=== PATIENT | female | born 1995 | race Caucasian/White ===

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

== ENCOUNTER 2018-10-21 18:26 | Emergency (ER) | payer OTHER ==
[~2018-10-21] VITALS: Ht 172.7 cm; Wt 68.0 kg
[2018-10-21 18:41] VITALS: BP 128/65
[2018-10-21 20:06] LABS: APPEARANCE,URINE Slightly Cloudy (CLEAR); BILIRUBIN,URINE Negative (NEGATIVE); BLOOD, URINE Negative Ery/uL (NEGATIVE); COLOR,URINE Yellow (YELLOW); KETONES,URINE Negative (NEGATIVE); LEUKOCYTE ESTERASE ,URINE Small (NEGATIVE); NITRITE, URINE Negative (NEGATIVE); PROTEIN,URINE Negative (NEGATIVE); UGLUCOSE Negative (NEGATIVE); UROBILINOGEN,URINE 0.2 EU/dL (0.2)
[2018-10-21 20:17] LABS: RBC,URINE 0-2 /HPF (0-2); WBC,URINE 0-2 /HPF (0-3)
[2018-10-21 20:18] LABS: BACTERIA,URINE FEW /HPF (None Seen); SQUAMOUS EPITHELIAL CELL,UR MODERATE /HPF (None Seen)
[2018-10-21] MEDS ORDERED: KETOROLAC TROMETHAMINE INJ 30 MG/ML VIAL ONE (20:25)
[2018-10-21] MEDS ORDERED: METHOCARBAMOL (500MG) 500 MG TABLET ONE (20:26)
[2018-10-21] MEDS: METHOCARBAMOL (500MG) 500 MG TABLET PO ONE (20:33)
[2018-10-21] MEDS: KETOROLAC TROMETHAMINE INJ 60 MG/2 ML VIAL IM ONE (20:35)
--- NOTE | 2018-10-21 21:47 | NUR ---
Patient discharged to home in stable condition. Written and verbal after care instructions given. Patient verbalizes understanding of instruction. Pt ambulatory with a steady gait
== END 2018-10-21 21:56 | disposition home or self-care (01) ==
LOC: ER 18:26
DX: M54.5 Low back pain (principal); M53.3 Sacrococcygeal disorders, not elsewhere classified
CPT/HCPCS: 72110; 81001; 84703; 96372; 99284; J1885; 81000-TC

== ENCOUNTER 2021-05-19 16:44 | Emergency (ER) | payer OTHER ==
[~2021-05-19] VITALS: Ht 172.7 cm; Wt 70.8 kg
[2021-05-19] MEDS: MECLIZINE HCL 12.5 MG TABLET PO ONE ×2 (18:00→18:44)
[2021-05-19] MEDS: KETOROLAC TROMETHAMINE INJ 30 MG/ML VIAL IV ONE ×2 (18:00→18:44)
[2021-05-19] MEDS ORDERED: IV NS 0.9% 1,000 ML BAG IV ONE ×2 (18:00→21:00)
[2021-05-19] MEDS ORDERED: KETOROLAC TROMETHAMINE INJ 30 MG/ML VIAL ONE (18:01)
[2021-05-19] MEDS ORDERED: MECLIZINE HCL 12.5 MG TABLET ONE (18:02)
[2021-05-19 18:44] LABS: BASOPHILS % (AUTO) 0.3 % (0.0-2.0); EOSINOPHILS % (AUTO) 0.3 % (0.0-6.0); HEMATOCRIT 39 % (33-45); HEMOGLOBIN 12.9 g/dL (11.5-14.8); LYMPHOCYTES # (AUTO) 1.2 K/uL (0.8-4.8); LYMPHOCYTES % (AUTO) 19.1 % (20.0-44.0); MEAN CORPUSCULAR HGB CONC 33 g/dl (31.0-36.0); MEAN CORPUSCULAR VOLUME 81 fL (82-100); MONOCYTES # (AUTO) 0.7 K/uL (0.1-1.30); MONOCYTES % (AUTO) 10.3 % (2.0-12.0); NEUTROPHILS # (AUTO) 4.5 K/uL (1.8-8.9); PLATELET COUNT (AUTO) 227 K/uL (150-450); RED BLOOD CELL COUNT(AUTO) 4.88 MIL/uL (4.0-5.2); WHITE BLOOD COUNT (AUTO) 6.4 K/uL (4.3-11.0)
[2021-05-19 19:14] LABS: ALBUMIN 4.3 g/dL (3.4-5.0); BILIRUBIN,DIRECT 0.1 mg/dL (0.0-0.2); BILIRUBIN,TOTAL 0.4 mg/dL (0.2-1.0); CALCIUM, SERUM 9.2 mg/dL (8.5-10.1); CREATININE 0.8 mg/dL (0.6-1.3); POTASSIUM 3.5 mmol/L (3.5-5.1); TOTAL PROTEIN, SERUM 8.2 g/dL (6.4-8.2)
[2021-05-19 19:42] LABS: BILIRUBIN,URINE Negative (NEGATIVE); COLOR,URINE YELLOW (YELLOW); LEUKOCYTE ESTERASE ,URINE Negative (NEGATIVE); NITRITE, URINE Negative (NEGATIVE); PROTEIN,URINE Negative (NEGATIVE); UGLUCOSE Negative (NEGATIVE); UROBILINOGEN,URINE 0.2 EU/dL (0.2)
[2021-05-19 19:45] LABS: BACTERIA,URINE Rare /HPF (None Seen); RBC,URINE NONE SEEN /HPF (0-2); SQUAMOUS EPITHELIAL CELL,UR Few /HPF (None Seen); WBC,URINE NONE SEEN /HPF (0-3)
[2021-05-19] MEDS ORDERED: IBUP-1955 PO (20:14)
[2021-05-19] MEDS ORDERED: MECL-159 PO (20:14)
[2021-05-19] MEDS ORDERED: MECLIZINE HCL 25 MG TABLET ONE ×2 (20:33→20:36)
[2021-05-19 20:41] VITALS: BP 130/70
[2021-05-19] MEDS ORDERED: MECLIZINE HCL 12.5 MG TABLET PO ONE (21:00)
== END 2021-05-19 20:45 | disposition home or self-care (01) ==
LOC: ER 16:47
DX: H83.09 Labyrinthitis, unspecified ear (principal); Z20.822 Contact with and (suspected) exposure to COVID-19; R00.1 Bradycardia, unspecified; Z86.16 Personal history of COVID-19
CPT/HCPCS: 36415; 71045; 80048; 80076; 81001; 84703; 85025; 85652; 86140; 87426; 93005; 96360; 99285; C9803; J7030 ×2; J8597; J1885